=== PATIENT | male | born 1945 | race Caucasian/White ===

== ENCOUNTER 2017-03-13 11:47 | Day surgery (SDC) | payer OTHER ==
[2017-03-13 12:14] LABS: BASOPHILS # (AUTO) 0.1 X10'3 (0-0.2); BASOPHILS % (AUTO) 1.2 % (0-1); EOSINOPHILS # (AUTO) 0.3 X10'3 (0-0.9); EOSINOPHILS % (AUTO) 6.1 % (0-6); HEMATOCRIT 44.9 % (42.0-52.0); HEMOGLOBIN 15.2 g/dl (14.0-17.9); LYMPHOCYTES # (AUTO) 1.5 X10'3 (1.1-4.8); LYMPHOCYTES % (AUTO) 30.7 % (21-51); MEAN CORPUSCULAR HEMOGLOBIN 31.9 PG (27.0-31.0); MEAN CORPUSCULAR HGB CONC 33.9 % (33.0-36.5); MEAN CORPUSCULAR VOLUME 94.3 FL (78-98); MEAN PLATELET VOLUME 7.8 FL (7.4-10.4); MONOCYTES # (AUTO) 0.5 X10'3 (0-0.9); MONOCYTES % (AUTO) 9.2 % (2-12); NEUTROPHILS # (AUTO) 2.6 X10'3 (1.8-7.7); NEUTROPHILS % (AUTO) 52.8 % (42-75); PLATELET COUNT 287 X10'3 (140-440); RED BLOOD COUNT 4.76 X10'6 (4.70-6.10); RED CELL DISTRIBUTION WIDTH 12.4 % (11.5-14.5); WHITE BLOOD COUNT 4.9 X10'3 (4.5-11.0)
[2017-03-13 12:22] LABS: ALBUMIN 3.8 G/DL (3.4-5.0); ANION GAP 5 (8-16); BLOOD UREA NITROGEN 14 MG/DL (7-18); BUN/CREATININE RATIO 12.4 (5.4-32.0); CALCIUM 8.8 MG/DL (8.5-10.1); CHLORIDE 108 MMOL/L (99-107); CREATININE 1.13 MG/DL (0.60-1.10); GLUCOSE 108 MG/DL (70-104); POTASSIUM 4.4 MMOL/L (3.5-5.1); SODIUM 144 MMOL/L (135-145); TOTAL CARBON DIOXIDE 30.7 MMOL/L (24-32); eGFR 64 ML/MIN
[2017-03-13 12:24] LABS: PARTIAL THROMBOPLASTIN TIME 26 SECONDS (22-32); PROTHROMBIN TIME 10.1 SECONDS (9.0-12.0)
== END 2017-03-13 23:59 | disposition home or self-care (01) ==
LOC: SSTAY O 11:47
PROVIDERS: ATTEND Internal Medicine Interventional Cardiology
DX: R07.2 Precordial pain (principal); Z53.9 Procedure and treatment not carried out, unspecified reason; F17.211 Nicotine dependence, cigarettes, in remission; F32.9 Major depressive disorder, single episode, unspecified; F41.9 Anxiety disorder, unspecified; G43.109 Migraine with aura, not intractable, without status migrainosus; M54.5 Low back pain; G47.33 Obstructive sleep apnea (adult) (pediatric)
CPT/HCPCS: 36415; 80048; 85025; 85610; 85730

== ENCOUNTER 2017-03-24 11:06 | Day surgery (SDC) | payer OTHER ==
[2017-03-24] VITALS (9 sets, daily range): BP systolic 96–146; BP diastolic 53–86
[~2017-03-24] VITALS: Ht 182.9 cm; Wt 88.3 kg
[2017-03-24] MEDS ORDERED: ZONI25CA3 PO (11:45)
[2017-03-24] MEDS ORDERED: BUPR100T5 PO (11:45)
[2017-03-24] MEDS ORDERED: DULO60CA64 PO (11:45)
[2017-03-24] MEDS ORDERED: GABA300T26 PO (11:45)
[2017-03-24] MEDS ORDERED: POLY119P17 PO (11:46)
[2017-03-24] MEDS ORDERED: OXYC5CAP19 PO (11:47)
[2017-03-24] MEDS ORDERED: ASPI-611 PO (11:48)
[2017-03-24] MEDS ORDERED: SUMA100T16 PO (11:48)
[2017-03-24] MEDS ORDERED: VITA1TAB20 PO (11:49)
[2017-03-24] MEDS ORDERED: CHOL10008 PO (11:49)
[2017-03-24] MEDS ORDERED: OMEG1CAP2 PO (11:50)
[2017-03-24] MEDS ORDERED: CALC-1051 PO (11:50)
[2017-03-24] MEDS ORDERED: LORazepam 0.5 MG tablet PO PRN (11:55)
[2017-03-24] MEDS ORDERED: normal saline 1000ml 1,000 ML IV SCH ×2 (11:55→14:20)
[2017-03-24] MEDS ORDERED: diphenhydrAMINE 25mg capsule PO PRN (11:55)
[2017-03-24] MEDS ORDERED: iohexol 350MG/ML 100ml bottle IV ONE (13:19)
[2017-03-24] MEDS ORDERED: LIDOcaine 1% 30ml vial 30 ML ONE (13:19)
[2017-03-24] MEDS ORDERED: fentaNYL/PF 50MCG/1 ML 2ML syringe ONE (13:25)
[2017-03-24] MEDS ORDERED: midazolam 2 mg/2 ml injection ONE (13:25)
[2017-03-24] MEDS ORDERED: OXAZEpam 15mg capsule PO PRN (14:20)
[2017-03-24] MEDS ORDERED: ondansetron/PF 4mg/2ml inj IV PRN (14:20)
[2017-03-24] MEDS ORDERED: nitroGLYCERIN 0.4mg SUBLingual tab SL PRN (14:20)
[2017-03-24] MEDS ORDERED: HYDROcodone/acetaminophen 10/325mg tab PO PRN (14:20)
[2017-03-24] MEDS ORDERED: proCHLORperazine 10 MG/2 ml inj IV PRN (14:20)
[2017-03-24] MEDS ORDERED: HYDROcodone/acetaminophen 5mg/325mg tablet PO PRN (14:20)
[2017-03-24] MEDS ORDERED: SUMAtriptan 25 MG tablet PO ONE (15:20)
== END 2017-03-24 17:15 | disposition home or self-care (01) ==
LOC: SSTAY O 11:06
PROVIDERS: ATTEND Internal Medicine Interventional Cardiology
DX: I20.9 Angina pectoris, unspecified (principal); F32.9 Major depressive disorder, single episode, unspecified; F41.9 Anxiety disorder, unspecified; G47.33 Obstructive sleep apnea (adult) (pediatric); G43.109 Migraine with aura, not intractable, without status migrainosus; Z79.82 Long term (current) use of aspirin; Z79.899 Other long term (current) drug therapy; Z85.46 Personal history of malignant neoplasm of prostate; Z88.6 Allergy status to analgesic agent; Z88.1 Allergy status to other antibiotic agents; Z98.890 Other specified postprocedural states; Z90.89 Acquired absence of other organs; Z87.891 Personal history of nicotine dependence
CPT/HCPCS: 93005; 93458; 99152; A6257; C1769; J1644; J2250; J3010; J3490; J7030; Q0163; Q9967; A4620